=== PATIENT | male | born 1985 | race African-American/Black ===

== ENCOUNTER 2020-08-27 17:47 | Emergency (ER) | payer SELFPAY ==
[~2020-08-27] VITALS: Ht 172.7 cm; Wt 70.5 kg
[2020-08-27 18:02] VITALS: BP 141/96; TEMP 97.7
[2020-08-27] MEDS ORDERED: PROTONIX 40MG T40 MG PO (20:10)
[2020-08-27 20:23] VITALS: PULSE 66
== END 2020-08-27 20:23 | disposition home or self-care (01) ==
LOC: COL.ER 17:47
DX: K21.9 Gastro-esophageal reflux disease without esophagitis (principal); R05 Cough; F17.210 Nicotine dependence, cigarettes, uncomplicated

== ENCOUNTER 2021-04-26 19:39 | Emergency (ER) | payer SELFPAY ==
[~2021-04-26] VITALS: Ht 172.7 cm; Wt 67.3 kg
[~2021-04-26 19:39] MED LIST: PROTONIX 40MG T40 MG PO
[2021-04-26 19:45] VITALS: TEMP 98.1
[2021-04-26 20:43] LABS: COLLECTION METHOD CLEAN CATCH
[2021-04-26 20:49] LABS: MUCOUS Present /lpf; PH 6 (5-8); SQUAMOUS EPITHELIAL None Seen /hpf; URINE APPEARANCE Clear; URINE BACTERIA None Seen /hpf; URINE BILIRUBIN Negative (NEGATIVE); URINE BLOOD 1+ (NEGATIVE); URINE COLOR Yellow; URINE GLUCOSE Negative (NEGATIVE); URINE KETONE Negative (NEGATIVE); URINE LEUKOCYTE ESTERASE Negative (NEGATIVE); URINE NITRATE Negative (NEGATIVE); URINE PROTEIN(semi-quant) Negative (NEGATIVE); URINE RBC 0-2 /hpf; URINE UROBILINOGEN Negative (NEGATIVE)
[2021-04-26 20:52] LABS: BASO # 0.1 K/mm3 (0.0-0.2); BASO % 0.6 % (0.0-2.0); EOS # 0.2 K/mm3 (0.0-0.7); EOS % 1.9 % (0-4.0); GRAN # 4.5 K/mm3 (1.4-6.5); GRAN % 52.6 % (42.2-75.2); HEMATOCRIT 40.1 % (42.0-52.0); HEMOGLOBIN 13.9 g/dl (13.5-18.0); LYMPH % 35.4 % (20.0-51.0); MEAN CELL VOLUME 95 fl (80.0-100.0); MEAN CORPUSCULAR HEMOGLOBIN 33 pg (27.0-31.0); MEAN CORPUSCULAR HGB CONC 35 g/dl (33.0-37.0); MEAN PLATELET VOLUME 10.5 fl (7.4-10.4); MONO # 0.8 K/mm3 (0.1-0.6); MONO % 9.3 % (1.7-9.3); PLATELET COUNT 246 K/mm3 (130-400); RED BLOOD COUNT 4.23 M/mm3 (4.20-5.60)
[2021-04-26 21:04] LABS: ALBUMIN 4.2 gm/dL (3.5-5.0); BILIRUBIN,TOTAL 0.5 mg/dL (0.2-1.2); CALCIUM 9.5 mg/dL (8.4-10.2); CREATININE, serum 0.96 mg/dL (0.72-1.25); TOTAL PROTEIN 7.2 gm/dL (6.2-8.1)
[2021-04-26 21:58] VITALS: BP 138/98; PULSE 83
== END 2021-04-26 22:00 | disposition home or self-care (01) ==
LOC: COL.ER 19:39
PROVIDERS: Nurse Practitioner
DX: E86.0 Dehydration (principal)
CPT/HCPCS: J7030

== ENCOUNTER 2021-06-16 00:42 | Emergency (ER) | payer SELFPAY ==
[~2021-06-16] VITALS: Ht 172.7 cm; Wt 63.6 kg
[2021-06-16 02:50] VITALS: BP 137/85; PULSE 78; TEMP 98.6
== END 2021-06-16 02:50 | disposition home or self-care (01) ==
LOC: COL.ER 00:42
DX: J10.1 Influenza due to other identified influenza virus with other respiratory manifestations (principal); F17.200 Nicotine dependence, unspecified, uncomplicated; Z20.822 Contact with and (suspected) exposure to COVID-19

== ENCOUNTER 2021-09-23 20:22 | Emergency (ER) | payer SELFPAY ==
[~2021-09-23] VITALS: Ht 172.7 cm; Wt 63.6 kg
[2021-09-23 21:57] LABS: BASO # 0.1 K/mm3 (0.0-0.2); BASO % 0.7 % (0.0-2.0); EOS # 0.2 K/mm3 (0.0-0.7); EOS % 2.3 % (0.0-4.0); GRAN # 4.2 K/mm3 (1.4-6.5); GRAN % 55.8 % (42.2-75.2); HEMOGLOBIN 13.2 g/dl (13.5-18.0); LYMPH # 2.5 K/mm3 (1.2-3.4); LYMPH % 33.5 % (20.0-51.0); MEAN CELL VOLUME 93 fl (80.0-100.0); MEAN CORPUSCULAR HEMOGLOBIN 32 pg (27-31); MEAN CORPUSCULAR HGB CONC 35 g/dl (33.0-37.0); MEAN PLATELET VOLUME 10.5 fl (7.4-10.4); MONO # 0.6 K/mm3 (0.1-0.6); MONO % 7.4 % (1.7-9.3); PLATELET COUNT 248 K/mm3 (130-400); RED BLOOD COUNT 4.09 M/mm3 (4.20-5.60); REDCELL DISTRIBUTION WIDTH-CV 12.4 % (11.5-14.5)
[2021-09-23 22:11] LABS: ALBUMIN 4.1 gm/dL (3.5-5.0); BILIRUBIN,TOTAL 0.4 mg/dL (0.2-1.2); CALCIUM 9.1 mg/dL (8.4-10.2); CREATININE, serum 1.01 mg/dL (0.72-1.25); TOTAL PROTEIN 7.3 gm/dL (6.2-8.1)
[2021-09-23 23:15] VITALS: BP 134/78; PULSE 78; TEMP 98.2
[2021-09-23 23:15] LABS: COLLECTION METHOD CLEAN CATCH
[2021-09-23 23:24] LABS: MUCOUS Present (NOT PRESENT); PH 5 (5-8); SQUAMOUS EPITHELIAL None Seen /hpf (0-10); URINE APPEARANCE Clear (CLEAR/HAZY); URINE BACTERIA None Seen /hpf (NONE SEEN); URINE BILIRUBIN Negative (NEGATIVE); URINE BLOOD Negative (NEGATIVE); URINE COLOR Yellow (YELLOW); URINE GLUCOSE Negative (NEGATIVE); URINE KETONE Trace (NEGATIVE); URINE LEUKOCYTE ESTERASE Negative (NEGATIVE); URINE NITRATE Negative (NEGATIVE); URINE PROTEIN(semi-quant) Negative (NEGATIVE); URINE UROBILINOGEN >=4.0 (NEGATIVE)
== END 2021-09-23 23:16 | disposition home or self-care (01) ==
LOC: COL.ER 20:22
PROVIDERS: Emergency Medicine
DX: D64.9 Anemia, unspecified (principal); E86.0 Dehydration; R35.0 Frequency of micturition
CPT/HCPCS: J7120

== ENCOUNTER 2022-10-26 19:17 | Emergency (ER) | payer SELFPAY ==
[~2022-10-26] VITALS: Ht 172.7 cm; Wt 63.6 kg
[2022-10-26] MEDS ORDERED: VOLTAREN 75 DR75 MG PO (21:36)
[2022-10-26 22:20] VITALS: BP 124/84; PULSE 30; TEMP 98.1
== END 2022-10-26 22:20 | disposition home or self-care (01) ==
LOC: COL.ER 19:17
DX: R07.89 Other chest pain (principal); Z28.310 Unvaccinated for COVID-19